=== PATIENT | female | born 1960 | race Caucasian/White ===

== ENCOUNTER 2023-06-27 15:18 | Emergency (ER) | payer OTHER ==
[2023-06-27] MEDS ORDERED: Cephalexin 500 MG CAP ONE (16:14)
== END 2023-06-27 16:17 | disposition home or self-care (01) ==
LOC: MADERS 15:18
DX: L03.012 Cellulitis of left finger (principal); J45.909 Unspecified asthma, uncomplicated; M19.90 Unspecified osteoarthritis, unspecified site; Z79.899 Other long term (current) drug therapy
CPT/HCPCS: 99283